=== PATIENT | female | born 1955 | race Caucasian/White ===

== ENCOUNTER 2024-04-17 06:52 | Day surgery (SDC) | payer MEDICARE, OTHER ==
[2024-04-17] MEDS: Lactated Ringers 1,000 ML IV SCH (07:16)
[2024-04-17] MEDS ORDERED: Propofol 200 MG/20 ML SDV ONE ×2 (08:13→08:32)
== END 2024-04-17 10:56 | disposition home or self-care (01) ==
LOC: VM.SDS 06:52
PROVIDERS: ATTEND Family Medicine
DX: Z12.11 Encounter for screening for malignant neoplasm of colon (principal); R19.5 Other fecal abnormalities; K57.30 Diverticulosis of large intestine without perforation or abscess without bleeding; F33.9 Major depressive disorder, recurrent, unspecified; F41.9 Anxiety disorder, unspecified; M81.0 Age-related osteoporosis without current pathological fracture; E78.2 Mixed hyperlipidemia; J44.9 Chronic obstructive pulmonary disease, unspecified; E46 Unspecified protein-calorie malnutrition; Z68.1 Body mass index [BMI] 19.9 or less, adult; Z79.899 Other long term (current) drug therapy; Z88.0 Allergy status to penicillin; Z88.5 Allergy status to narcotic agent
CPT/HCPCS: G0121; J2704; J7120